=== PATIENT | female | born 1975 | race African-American/Black ===

== ENCOUNTER 2018-11-16 14:36 | Emergency (ER) | payer OTHER ==
[~2018-11-16] VITALS: Ht 170.2 cm; Wt 87.5 kg
[~2018-11-16 14:36] MED LIST: AMOXICILLIN 50500 M1; APAP-BUTALBITA1 EACH PO; AUGMENTIN 875875 M1 PO; AUGMENTIN 875875 MG PO; CELEXA 20 MG TA20 M1 PO; CORTISPORIN OTI10 M2 OT; NOHOMEMEDICATIONS; PERCOCET 5-3251 EACH PO; PRENATAL COMPL1 EACH PO; UROMAG84.5 MG; VICODIN ES 7.51 EACH
[2018-11-16 15:58] LABS: ABSOLUTE NEUTROPHILS 3.6 thou/uL (1.4-8.2); BASOPHILS 0.9 % (0.0-2.0); EOSINOPHILS 1.8 % (0.0-3.0); HEMATOCRIT 37.5 % (37.0-47.0); HEMOGLOBIN 12.1 gm/dL (12.0-15.0); LYMPHOCYTES 29.4 % (24.0-44.0); MCH 26.8 pg (26.0-34.0); MCHC 32.2 g/dL (28.0-37.0); MCV 83.2 fL (80.0-100.0); MONOCYTES 8.8 % (1.0-8.0); PLATELET COUNT 199 thou/uL (150-400); POLYS 59.1 % (36.0-66.0); RBC 4.51 mil/uL (4.20-5.00); RDW 16.3 % (10.5-14.5); WBC 6.1 thou/uL (4.0-11.0)
[2018-11-16 16:01] LABS: URINE BILIRUBIN NEGATIVE (Negative); URINE BLOOD NEGATIVE (Negative); URINE CLARITY CLEAR; URINE COLOR YELLOW; URINE GLUCOSE-RANDOM* NEGATIVE (Negative); URINE KETONES NEGATIVE (Negative); URINE LEUKOCYTES-REFLEX NEGATIVE (Negative); URINE NITRITE-REFLEX NEGATIVE (Negative); URINE PROTEIN (DIPSTICK) NEGATIVE (Negative); URINE UROBILINOGEN 0.2 E.U./dl (0.2-1.0)
[2018-11-16 16:04] LABS: CALCIUM 8.8 mg/dL (8.5-10.1); CREATININE 0.9 mg/dL (0.6-1.0); POTASSIUM 3.8 mmol/L (3.5-5.1)
[2018-11-16 16:14] LABS: ALBUMIN 3.6 g/dL (3.4-5.0); TOTAL BILIRUBIN 0.2 mg/dL (<0.1-1.0)
[2018-11-16] MEDS ORDERED: ZOFRAN ODT4 MG PO (16:59)
[2018-11-16] MEDS ORDERED: IBUPROFEN 600600 M1 PO (16:59)
[2018-11-16] MEDS ORDERED: AMOXICILLIN875 MG PO (16:59)
[2018-11-16 17:17] VITALS: BP 116/70
== END 2018-11-16 17:25 | disposition home or self-care (01) ==
LOC: ER 14:36
PROVIDERS: Emergency Medicine Emergency Medical Services
DX: O26.891 Other specified pregnancy related conditions, first trimester (principal); N83.201 Unspecified ovarian cyst, right side; F17.210 Nicotine dependence, cigarettes, uncomplicated; K58.9 Irritable bowel syndrome, unspecified; Z88.2 Allergy status to sulfonamides; Z88.8 Allergy status to other drugs, medicaments and biological substances; Z3A.00 Weeks of gestation of pregnancy not specified